=== PATIENT | male | born 1990 | race Hispanic/Latino ===

== ENCOUNTER 2019-09-10 20:13 | Emergency (ER) | payer SELFPAY ==
[~2019-09-10] VITALS: Ht 154.9 cm; Wt 100.0 kg
[~2019-09-10 20:13] MED LIST: AMOXICILLIN500 MG OR; BACTRIM DS1 TAB OR; NO MEDS; PERCOCET 5/325M1 TAB OR
[2019-09-10] MEDS ORDERED: PREVACID30 M1 PO (20:26)
[2019-09-10 21:13] LABS: HEMATOCRIT 43.4 % (39.0-50.0); HEMOGLOBIN 15.1 g/dl (14.0-18.0); IMMATURE GRANULOCYTES 0.3 % (0.0-5.0); MEAN CELL VOLUME 87.5 fL CALC (80.0-100.0); MEAN CORPUSCULAR HGB 30.4 pG CALC (26.0-32.0); MEAN CORPUSCULAR HGB CONC 34.8 g/L CALC (32.0-36.0); NEUT# 8.39 thou/uL (1.82-7.42); RED BLOOD COUNT 4.96 mill/uL (4.70-6.10); RED CELL DISTRI WIDTH 12.2 % (11.5-15.5)
[2019-09-10] MEDS ORDERED: LIDOCAINE HCL VIS2 % PO (22:11)
[2019-09-10 22:20] VITALS: BP 138/77
== END 2019-09-10 22:23 | disposition home or self-care (01) | DRG 153 ==
LOC: ED 20:13
PROVIDERS: Family Medicine
DX: J02.9 Acute pharyngitis, unspecified (principal); F17.210 Nicotine dependence, cigarettes, uncomplicated

== ENCOUNTER 2020-02-04 20:53 | Emergency (ER) | payer SELFPAY ==
[~2020-02-04 20:53] MED LIST changes: +LIDOCAINE HCL VIS2 % PO; +PREVACID30 M1 PO
[2020-02-04 21:44] LABS: URINE BILIRUBIN - DIPSTICK NEGATIVE (NEGATIVE); URINE BLOOD DIPSTICK NEGATIVE (NEGATIVE); URINE COLOR YELLOW; URINE GLUCOSE - DIPSTICK NEGATIVE (NEGATIVE); URINE KETONE NEGATIVE (NEGATIVE); URINE LEUK ESTERASE NEGATIVE (NEGATIVE); URINE NITRITE - DIPSTICK NEGATIVE (Negative); URINE PH 5.5 (4.5-8.0); URINE PROTEIN - DIPSTICK NEGATIVE (NEG-TRACE); URINE SPECIFIC GRAVITY >=1.030; URINE UROBILINOGEN - DIPSTICK 0.2 E.U./dL (0.2)
[2020-02-04] MEDS ORDERED: SB CLOTRIMAZ1 % EX (22:43)
[2020-02-04] MEDS ORDERED: MUPIROCIN2 % EX (22:43)
[2020-02-04 22:55] VITALS: BP 141/73
== END 2020-02-04 22:52 | disposition home or self-care (01) | DRG 728 ==
LOC: ED 20:53
PROVIDERS: Emergency Medicine
DX: N47.6 Balanoposthitis (principal); F17.200 Nicotine dependence, unspecified, uncomplicated